=== PATIENT | female | born 1955 | race Caucasian/White ===

== ENCOUNTER 2022-07-18 13:57 | Inpatient (IN) | payer MEDICARE ==
[~2022-07-18] VITALS: Ht 167.6 cm; Wt 81.6 kg
[2022-07-18] MEDS ORDERED: SODIUM CHLORIDE 0.9% 1000ML 1,000 ML IV SCH (14:45)
[2022-07-18] MEDS: PIPERACILLIN/TAZOBACTAM 4.5 GM in SODIUM CHLORIDE 0.9% 100 ML IV SCH (15:07)
[2022-07-18 15:09] LABS: BASOPHILS % 0.2 % (0.0-1.0); EOSINOPHILS # (AUTO) 0.2 (0.0-0.4); EOSINOPHILS % 1.7 % (0.0-6.0); HEMATOCRIT 41.5 % (34.2-44.1); HEMOGLOBIN 12.8 g/dL (12.0-16.0); LYMPHOCYTES # (AUTO) 1.6 (1.0-3.2); LYMPHOCYTES % 14.3 % (18.0-39.1); MEAN CORPUSCULAR HEMOGLOBIN 30.8 pg (28-32); MEAN CORPUSCULAR HGB CONC 30.8 g/dL (31-35); MONOCYTES # (AUTO) 0.9 (0.2-0.8); MONOCYTES % 8.5 % (4.4-11.3); NEUTROPHILS # (AUTO) 8.2 (2.1-6.9); NEUTROPHILS % 75.1 % (38.7-80.0); PLATELET COUNT 350 x10e3/uL (140-360); RED BLOOD COUNT 4.15 x10e6/uL (3.6-5.1); RED CELL DISTRIBUTION WIDTH 13.1 % (11.7-14.4)
[2022-07-18 15:28] LABS: ALBUMIN/GLOBULIN RATIO 0.9 (0.8-2.0); ANION GAP 14.1 mmol/L (8-16); CALCIUM 9.2 mg/dL (8.4-10.2); CREATININE, SERUM 0.82 mg/dL (0.57-1.11); POTASSIUM 4.1 mmol/L (3.5-5.1)
[2022-07-18] MEDS: Morphine 4mg INJECTION 4 MG/ML INJ IV PRN ×2 (16:22→22:18)
[2022-07-18] MEDS: ONDANSETRON HCL INJ 2MG/ML 2ML 2 MG/ML VIAL IV PRN ×2 (16:23→22:22)
[2022-07-18] MEDS ORDERED: Vancomycin IV 1.25 GM in SODIUM CHLORIDE 0.9% 250ML 250 ML IV SCH (17:45)
[2022-07-18] MEDS ORDERED: Vancomycin IV 1 GM VIAL ONE (18:41)
[2022-07-18] MEDS ORDERED: SODIUM CHLORIDE 0.9% 250ML 250 ML ONE (18:43)
[2022-07-18] MEDS ORDERED: HYDROCODONE/APAP 5MG-325MG TAB PO PRN (20:15)
[2022-07-19] VITALS (7 sets, daily range): BP systolic 108–124; BP diastolic 59–72
[2022-07-19] MEDS ORDERED: MULTI-VITAMIN1 EACH PO (00:57)
[2022-07-19] MEDS ORDERED: FLUDROCORTISON0.1 MG PO (00:57)
[2022-07-19] MEDS ORDERED: IRON325 M1 PO (00:57)
[2022-07-19] MEDS ORDERED: PRAVASTATIN SOD20 MG PO (00:57)
[2022-07-19] MEDS ORDERED: VITAMIN D3125 MCG/1 PO (00:57)
[2022-07-19] MEDS ORDERED: ALLEGRA ALLERGY60 MG PO (00:57)
[2022-07-19] MEDS ORDERED: MIDODRINE HCL5 MG PO (00:57)
[2022-07-19] MEDS ORDERED: POTASSIUM CHLO10 ME1 PO (00:57)
[2022-07-19] MEDS ORDERED: CARAFATE1 GM PO (00:57)
[2022-07-19] MEDS ORDERED: IMIPRAMINE HCL50 MG PO (00:57)
[2022-07-19] MEDS ORDERED: PANTOPRAZOLE SO40 MG PO (00:57)
[2022-07-19] MEDS ORDERED: BUMETANIDE1 MG PO (00:57)
[2022-07-19] MEDS ORDERED: METOPROLOL SUCC25 MG PO (00:57)
[2022-07-19] MEDS: Morphine 4mg INJECTION 4 MG/ML INJ IV PRN ×5 (01:00→18:27)
[2022-07-19] MEDS: ONDANSETRON HCL INJ 2MG/ML 2ML 2 MG/ML VIAL IV PRN ×4 (02:38→18:27)
[2022-07-19] MEDS: PIPERACILLIN/TAZOBACTAM 4.5 GM in SODIUM CHLORIDE 0.9% 100 ML IV SCH ×2 (02:41→16:59)
[2022-07-19] MEDS ORDERED: SODIUM CHLORIDE 0.9% 500ML 500 ML ONE (02:41)
[2022-07-19] MEDS ORDERED: SODIUM CHLORIDE 0.9% 100 ML ONE (02:41)
[2022-07-19 05:20] LABS: BASOPHILS % 0.3 % (0.0-1.0); EOSINOPHILS # (AUTO) 0.2 (0.0-0.4); EOSINOPHILS % 2.2 % (0.0-6.0); HEMATOCRIT 33.5 % (34.2-44.1); HEMOGLOBIN 10.9 g/dL (12.0-16.0); LYMPHOCYTES # (AUTO) 1.4 (1.0-3.2); MEAN CORPUSCULAR HEMOGLOBIN 30.8 pg (28-32); MEAN CORPUSCULAR HGB CONC 32.5 g/dL (31-35); MEAN CORPUSCULAR VOLUME 94.6 fL (81-99); MONOCYTES # (AUTO) 0.6 (0.2-0.8); MONOCYTES % 9.3 % (4.4-11.3); NEUTROPHILS # (AUTO) 4.7 (2.1-6.9); NEUTROPHILS % 67.9 % (38.7-80.0); PLATELET COUNT 276 x10e3/uL (140-360); RED BLOOD COUNT 3.54 x10e6/uL (3.6-5.1); RED CELL DISTRIBUTION WIDTH 13.2 % (11.7-14.4)
[2022-07-19 05:53] LABS: ANION GAP 13.3 mmol/L (8-16); CALCIUM 8.6 mg/dL (8.4-10.2); CREATININE, SERUM 0.68 mg/dL (0.57-1.11); POTASSIUM 4.3 mmol/L (3.5-5.1)
[2022-07-19] MEDS: Vancomycin IV 1.25 GM in SODIUM CHLORIDE 0.9% 250ML 250 ML IV SCH ×2 (08:19→20:00)
[2022-07-19] MEDS: MIDODRINE 2.5 MG TAB PO SCH ×2 (08:28→17:03)
[2022-07-19] MEDS ORDERED: SCOPOLAMINE 1 MG PATCH ONE (11:52)
[2022-07-19] MEDS ORDERED: SEVOFLURANE INHAL SOLN 250 ML PEN BTL ONE (12:43)
[2022-07-19] MEDS ORDERED: LIDOCAINE HCL 2% LOCAL INJ 5 ML SDV VIAL INJ ONE (12:43)
[2022-07-19] MEDS ORDERED: PROPOFOL IV EMULSION 10 MG/ML 20 ML VIAL ONE (12:43)
[2022-07-19] MEDS ORDERED: POVIDONE IODINE 0.05% 0.05 % ML PO ONE (12:43)
[2022-07-19] MEDS ORDERED: ONDANSETRON HCL INJ 2MG/ML 2ML 2 MG/ML VIAL ONE (12:43)
[2022-07-19] MEDS ORDERED: KETOROLAC TROMETHAMINE 30 MG/ML VIAL ONE (12:43)
[2022-07-19] MEDS ORDERED: DEXAMETHASONE SOD PHOS INJ 4 MG/ML SDV ONE (12:43)
[2022-07-19] MEDS ORDERED: Vancomycin IV 1 GM VIAL ONE (12:52)
[2022-07-19] MEDS ORDERED: FENTANYL CITRATE/PF 100MCG/2 ML INJ ONE ×2 (13:53→14:09)
[2022-07-19] MEDS ORDERED: SUCRALFATE 1 GM TAB PO PRN (16:30)
[2022-07-19] MEDS: PANTOPRAZOLE SOD 40 MG TABEC PO SCH (17:00)
[2022-07-19] MEDS ORDERED: Vancomycin IV 1 GM in SODIUM CHLORIDE 0.9% 250ML 250 ML IV ONE (22:15)
[2022-07-20] VITALS (7 sets, daily range): BP systolic 112–124; BP diastolic 60–80
[2022-07-20] MEDS: PIPERACILLIN/TAZOBACTAM 4.5 GM in SODIUM CHLORIDE 0.9% 100 ML IV SCH ×2 (02:37→14:04)
[2022-07-20] MEDS: METOPROLOL SUCCINATE 25 MG TAB XL PO SCH (09:20)
[2022-07-20] MEDS: VANCOMYCIN 1.25GM/250ML PREMIX 250 ML IV SCH ×2 (09:20→22:27)
[2022-07-20] MEDS: PANTOPRAZOLE SOD 40 MG TABEC PO SCH ×2 (09:20→17:06)
[2022-07-20] MEDS: MIDODRINE 2.5 MG TAB PO SCH ×2 (09:21→17:06)
[2022-07-20 11:03] LABS: BASOPHILS % 0.4 % (0.0-1.0); EOSINOPHILS # (AUTO) 0.1 (0.0-0.4); EOSINOPHILS % 1.3 % (0.0-6.0); HEMATOCRIT 32.8 % (34.2-44.1); HEMOGLOBIN 10.7 g/dL (12.0-16.0); LYMPHOCYTES # (AUTO) 1.5 (1.0-3.2); LYMPHOCYTES % 20.6 % (18.0-39.1); MEAN CORPUSCULAR HEMOGLOBIN 30.9 pg (28-32); MEAN CORPUSCULAR HGB CONC 32.6 g/dL (31-35); MEAN CORPUSCULAR VOLUME 94.8 fL (81-99); MONOCYTES # (AUTO) 0.5 (0.2-0.8); MONOCYTES % 6.5 % (4.4-11.3); NEUTROPHILS # (AUTO) 5.3 (2.1-6.9); NEUTROPHILS % 70.9 % (38.7-80.0); PLATELET COUNT 317 x10e3/uL (140-360); RED BLOOD COUNT 3.46 x10e6/uL (3.6-5.1)
[2022-07-20 11:44] LABS: ERYTHROCYTE SEDIMENTATION RATE 34 mm/hr (0-20)
[2022-07-20] MEDS: FERROUS SULFATE 325 MG TAB PO SCH (14:04)
[2022-07-20] MEDS: FLUDROCORTISONE ACETATE 0.1 MG TAB PO SCH (14:04)
[2022-07-20] MEDS: Morphine 4mg INJECTION 4 MG/ML INJ IV PRN ×2 (14:21→20:34)
[2022-07-20] MEDS: ONDANSETRON HCL INJ 2MG/ML 2ML 2 MG/ML VIAL IV PRN ×2 (14:21→20:34)
[2022-07-21] VITALS (8 sets, daily range): BP systolic 115–152; BP diastolic 57–89
[2022-07-21] MEDS: ONDANSETRON HCL INJ 2MG/ML 2ML 2 MG/ML VIAL IV PRN ×4 (04:25→21:06)
[2022-07-21] MEDS: Morphine 4mg INJECTION 4 MG/ML INJ IV PRN ×4 (04:25→21:06)
[2022-07-21 05:01] LABS: BASOPHILS % 0.4 % (0.0-1.0); EOSINOPHILS # (AUTO) 0.2 (0.0-0.4); HEMATOCRIT 29.9 % (34.2-44.1); HEMOGLOBIN 9.8 g/dL (12.0-16.0); LYMPHOCYTES # (AUTO) 1.9 (1.0-3.2); LYMPHOCYTES % 40.5 % (18.0-39.1); MEAN CORPUSCULAR HEMOGLOBIN 30.6 pg (28-32); MEAN CORPUSCULAR HGB CONC 32.8 g/dL (31-35); MEAN CORPUSCULAR VOLUME 93.4 fL (81-99); MONOCYTES # (AUTO) 0.3 (0.2-0.8); MONOCYTES % 7.1 % (4.4-11.3); NEUTROPHILS # (AUTO) 2.2 (2.1-6.9); NEUTROPHILS % 46.8 % (38.7-80.0); PLATELET COUNT 282 x10e3/uL (140-360); RED CELL DISTRIBUTION WIDTH 12.9 % (11.7-14.4)
[2022-07-21 05:22] LABS: ANION GAP 14.2 mmol/L (8-16); CREATININE, SERUM 0.65 mg/dL (0.57-1.11); MAGNESIUM 1.7 MG/DL (1.3-2.1); POTASSIUM 4.2 mmol/L (3.5-5.1)
[2022-07-21] MEDS: VANCOMYCIN 1.25GM/250ML PREMIX 250 ML IV SCH (09:06)
[2022-07-21] MEDS: MIDODRINE 2.5 MG TAB PO SCH ×2 (09:07→17:31)
[2022-07-21] MEDS: FERROUS SULFATE 325 MG TAB PO SCH (09:07)
[2022-07-21] MEDS: METOPROLOL SUCCINATE 25 MG TAB XL PO SCH (09:08)
[2022-07-21] MEDS: PANTOPRAZOLE SOD 40 MG TABEC PO SCH ×2 (09:08→17:30)
[2022-07-21] MEDS ORDERED: SODIUM CHLORIDE 0.9% 0 ML ONE (20:46)
[2022-07-21] MEDS: CEFAZOLIN SODIUM 2 GM in SODIUM CHLORIDE 0.9% 100 ML IV SCH (21:07)
[2022-07-22] VITALS (8 sets, daily range): BP systolic 105–140; BP diastolic 66–79
[2022-07-22] MEDS: Morphine 4mg INJECTION 4 MG/ML INJ IV PRN ×5 (03:22→21:07)
[2022-07-22] MEDS: ONDANSETRON HCL INJ 2MG/ML 2ML 2 MG/ML VIAL IV PRN ×5 (03:22→21:06)
[2022-07-22] MEDS: CEFAZOLIN SODIUM 2 GM in SODIUM CHLORIDE 0.9% 100 ML IV SCH ×3 (05:29→19:51)
[2022-07-22] MEDS: METOPROLOL SUCCINATE 25 MG TAB XL PO SCH (08:07)
[2022-07-22] MEDS: FERROUS SULFATE 325 MG TAB PO SCH (08:07)
[2022-07-22] MEDS: MIDODRINE 2.5 MG TAB PO SCH ×2 (08:07→16:51)
[2022-07-22] MEDS: PANTOPRAZOLE SOD 40 MG TABEC PO SCH ×2 (08:07→16:50)
[2022-07-22 09:01] LABS: BASOPHILS % 0.5 % (0.0-1.0); EOSINOPHILS # (AUTO) 0.2 (0.0-0.4); EOSINOPHILS % 5.2 % (0.0-6.0); HEMATOCRIT 30.8 % (34.2-44.1); HEMOGLOBIN 10.4 g/dL (12.0-16.0); LYMPHOCYTES # (AUTO) 1.6 (1.0-3.2); LYMPHOCYTES % 36.9 % (18.0-39.1); MEAN CORPUSCULAR HGB CONC 33.8 g/dL (31-35); MEAN CORPUSCULAR VOLUME 91.7 fL (81-99); MONOCYTES # (AUTO) 0.4 (0.2-0.8); MONOCYTES % 9.6 % (4.4-11.3); NEUTROPHILS % 47.6 % (38.7-80.0); PLATELET COUNT 306 x10e3/uL (140-360); RED BLOOD COUNT 3.36 x10e6/uL (3.6-5.1); RED CELL DISTRIBUTION WIDTH 12.9 % (11.7-14.4)
[2022-07-22 09:21] LABS: ANION GAP 11.3 mmol/L (8-16); CALCIUM 8.7 mg/dL (8.4-10.2); CREATININE, SERUM 0.65 mg/dL (0.57-1.11); MAGNESIUM 1.8 MG/DL (1.3-2.1); POTASSIUM 4.3 mmol/L (3.5-5.1)
[2022-07-22] MEDS: FLUDROCORTISONE ACETATE 0.1 MG TAB PO SCH (15:10)
[2022-07-22] MEDS: POLYETHYLENE GLYCOL 3350 17 GM PACK PO SCH (16:49)
[2022-07-22] MEDS: DOCUSATE SODIUM 100 MG CAP PO SCH (16:50)
[2022-07-22] MEDS: SENNA-S TABLET PO SCH (16:50)
[2022-07-23] MEDS: Morphine 4mg INJECTION 4 MG/ML INJ IV PRN ×2 (03:34→09:33)
[2022-07-23] MEDS: CEFAZOLIN SODIUM 2 GM in SODIUM CHLORIDE 0.9% 100 ML IV SCH ×2 (04:39→14:08)
[2022-07-23 06:43] VITALS: BP 106/80
[2022-07-23] MEDS: PANTOPRAZOLE SOD 40 MG TABEC PO SCH (08:22)
[2022-07-23] MEDS: MIDODRINE 2.5 MG TAB PO SCH (08:22)
[2022-07-23] MEDS: FERROUS SULFATE 325 MG TAB PO SCH (08:22)
[2022-07-23] MEDS: SENNA-S TABLET PO SCH (08:23)
[2022-07-23] MEDS: POLYETHYLENE GLYCOL 3350 17 GM PACK PO SCH (08:23)
[2022-07-23] MEDS: DOCUSATE SODIUM 100 MG CAP PO SCH (08:23)
[2022-07-23] MEDS: METOPROLOL SUCCINATE 25 MG TAB XL PO SCH (08:23)
[2022-07-23 08:57] VITALS: BP 129/57
[2022-07-23 09:22] VITALS: BP 129/57
[2022-07-23] MEDS ORDERED: ACETAMINOPHEN-1 EAC3 PO (10:43)
[2022-07-23] MEDS ORDERED: ULTRAM 50MG50 MG PO (10:43)
[2022-07-23 12:10] VITALS: BP 106/50
== END 2022-07-23 15:45 | disposition home or self-care (01) | DRG 858 ==
LOC: ER 14:07 → ERHOLD 14:50 → MED/SURG 23:22
PROVIDERS: ADMIT Internal Medicine; ATTEND Internal Medicine
PROC: 0LQ70ZZ Repair Right Hand Tendon, Open Approach (ICD-10-PCS; 2022-07-19)
PROC: 0X9 Anatomical Regions, Upper Extremities, Drainage (ICD-10-PCS; 2022-07-19)
PROC: 0JBJ0ZZ Excision of Right Hand Subcutaneous Tissue and Fascia, Open Approach (ICD-10-PCS; principal; 2022-07-19 12:28)
PROC: 02HV33Z Insertion of Infusion Device into Superior Vena Cava, Percutaneous Approach (ICD-10-PCS; 2022-07-20)
DX: T81.49XA Infection following a procedure, other surgical site, initial encounter (principal); A49.01 Methicillin susceptible Staphylococcus aureus infection, unspecified site; I10 Essential (primary) hypertension; E78.5 Hyperlipidemia, unspecified; M19.90 Unspecified osteoarthritis, unspecified site; D50.9 Iron deficiency anemia, unspecified; Z20.822 Contact with and (suspected) exposure to COVID-19; Z98.84 Bariatric surgery status; Z90.49 Acquired absence of other specified parts of digestive tract
CPT/HCPCS: 36415; 36569; 71045; 80048; 80053; 80202; 83605; 83735; 85025; 85651; 86140; 87040; 87071; 87075; 87186; 87205; 94799; 99252; 99284; J1100; J1885; J2001; J2270; J2405; J2543; J3010; J3370; J7030; J7040; J7050